=== PATIENT | female | born 1980 | race Caucasian/White ===

== ENCOUNTER 2016-06-08 15:10 | Emergency (ER) | payer MEDICARE ==
[2014-02-17 11:38] VITALS: BMI 29.2
[~2016-06-08 15:10] MED LIST: IBUPROFEN600 MG PO; PERCOCET 5-3251 TAB PO; PRENATAL COMPLE1 TAB PO
== END 2016-06-08 15:11 | disposition left against medical advice (07) ==
LOC: D.ER 15:10
DX: Z02.9 Encounter for administrative examinations, unspecified (principal)

== ENCOUNTER 2016-09-22 08:34 | Emergency (ER) | payer MEDICARE ==
[2014-02-17 11:38] VITALS: BMI 29.2
== END 2016-09-22 09:25 | disposition home or self-care (01) ==
LOC: D.ER 08:34
DX: F41.9 Anxiety disorder, unspecified (principal); F31.9 Bipolar disorder, unspecified